=== PATIENT | female | born 1990 | race African-American/Black ===

== ENCOUNTER 2021-11-25 20:00 | Inpatient (IN) | payer OTHER ==
[2021-11-25] MEDS ORDERED: DINOPROSTONE 10 MG VAGINAL SUPPOSITORY VG ONE (21:15)
[2021-11-25 21:39] LABS: BASO % 0.4 % (0-2.0); EOS % 1.6 % (0-4.5); HEMATOCRIT 34.6 % (32.4-45.2); HEMOGLOBIN 11.8 GM/dL (10.7-15.3); LYMPH % 22.9 % (8-40); MCH 29.7 pg (25.7-33.7); MCHC 34.1 g/dl (32.0-36.0); MEAN CELL VOLUME 87.1 fl (80-96); MEAN PLT VOLUME 7.2 fl (7.5-11.1); MONO % 10.5 % (3.8-10.2); NEUT % 64.6 % (42.8-82.8); PLATELET COUNT 284 10^3/uL (134-434); RBC 3.97 M/mm3 (3.60-5.2); RDW 15.8 % (11.6-15.6); WHITE BLOOD COUNT 9.1 K/mm3 (4.0-10.0)
[2021-11-25 21:43] LABS: RETICULOCYTES 2.1 % (0.5-1.5)
[2021-11-25 21:47] LABS: INR 0.95 (0.83-1.09); PROTHROMBIN TIME (PATIENT) 10.9 SEC (9.7-13.0)
[2021-11-25 21:50] LABS: ACTIVATED PTT 24.8 SECONDS (25.2-36.5)
[2021-11-25 22:12] LABS: ALBUMIN 2.7 g/dl (3.4-5.0); BLOOD UREA NITROGEN 9.3 mg/dL (7-18)
[2021-11-25 22:14] LABS: CREATININE 0.8 mg/dL (0.55-1.3)
[2021-11-25 22:16] LABS: BILIRUBIN,TOTAL 0.3 mg/dL (0.2-1)
[2021-11-25 22:35] VITALS: BMI 41.5
[2021-11-26] MEDS: DEXTROSE 5%-LACTATED RINGERS 1,000 ML IV SCH ×2 (13:30→23:30)
[2021-11-26] MEDS ORDERED: OXYTOCIN 30 UNITS in 0.9% NS 30 UNIT/500 ML INFUS.BAG IVPB ONE (15:38)
[2021-11-26] MEDS: OXYTOCIN 30 UNITS in 0.9% NS 30 UNIT/500 ML INFUS.BAG IVPB SCH (15:45)
[2021-11-26] MEDS ORDERED: AMPICILLIN - 2 GM in SODIUM CHLORIDE 100 ML IVPB ONE (19:00)
[2021-11-26] MEDS ORDERED: AMPICILLIN SODIUM 2 GM VIAL ONE (19:27)
[2021-11-26] MEDS ORDERED: SODIUM CHLORIDE 100 ML IVPB ONE ×2 (19:27→23:15)
[2021-11-26] MEDS ORDERED: AMPICILLIN SODIUM 1 GM VIAL ONE (23:15)
[2021-11-26] MEDS: AMPICILLIN - 1 GM in SODIUM CHLORIDE 100 ML IVPB SCH (23:30)
[2021-11-27] MEDS ORDERED: PROMETHAZINE HCL 25 MG/1 ML VIAL IVPUSH ONE (01:27)
[2021-11-27] MEDS ORDERED: BUTORPHANOL TARTRATE 1 MG/ML VIAL IVPB ONE (01:27)
[2021-11-27] MEDS ORDERED: SODIUM CHLORIDE 100 ML IVPB ONE (03:29)
[2021-11-27] MEDS ORDERED: AMPICILLIN SODIUM 1 GM VIAL ONE ×3 (03:29→12:03)
[2021-11-27] MEDS: AMPICILLIN - 1 GM in SODIUM CHLORIDE 100 ML IVPB SCH ×4 (03:30→16:10)
[2021-11-27] MEDS ORDERED: BUTORPHANOL TARTRATE 2 MG/ML VIAL ONE (04:06)
[2021-11-27] MEDS ORDERED: PROMETHAZINE HCL 25 MG/1 ML VIAL ONE (04:07)
[2021-11-27] MEDS ORDERED: FENTANYL/BUPIVACAINE/NS/PF - PCEA - 50 ML DISP.SYRIN EP ONE ×2 (07:11→12:25)
[2021-11-27] MEDS ORDERED: BUPIVACAINE HCL/PF 0.25% (2.5MG/ML) 10 ML VIAL ONE (07:28)
[2021-11-27] MEDS: FENTANYL/BUPIVACAINE/NS/PF - PCEA - 50 ML DISP.SYRIN EP SCH ×2 (07:50→12:30)
[2021-11-27] MEDS ORDERED: NALOXONE HCL 0.4 MG/ML VIAL IVPUSH PRN (07:54)
[2021-11-27] MEDS ORDERED: ePHEDrine SULFATE 50 MG/1 ML AMPULE ONE (07:59)
[2021-11-27] MEDS ORDERED: PHENYLEPHRINE HCL 10 MG/1 ML SINGLE DOSE VIAL ONE ×2 (13:28→13:35)
[2021-11-27] MEDS ORDERED: ceFAZolin SODIUM 1 GM VIAL ONE (13:37)
[2021-11-27] MEDS ORDERED: OXYTOCIN 10 UNITS/ML VIAL ONE ×2 (13:38→13:39)
[2021-11-27] MEDS ORDERED: SODIUM CHLORIDE 0.9% P/F 10 ML VIAL IJ ONE ×2 (13:38→13:56)
[2021-11-27] MEDS ORDERED: morphine SULFATE/PF 1 MG/2 ML (2cc Syringe - QUVA) EP ONE (13:46)
[2021-11-27] MEDS ORDERED: ACETAMINOPHEN 325 MG TABLET (FP) PO PRN ×2 (13:46→15:39)
[2021-11-27] MEDS ORDERED: ONDANSETRON 4 MG/2 ML VIAL IVPUSH PRN (13:46)
[2021-11-27] MEDS ORDERED: SODIUM BICARBONATE 8.4% 50 MEQ/50 ML VIAL ONE (13:54)
[2021-11-27] MEDS ORDERED: OXYTOCIN 20 UNITS in 0.9% NS 20 UNIT/1,000 ML INFUS.BAG IV ONE ×2 (14:31→16:52)
[2021-11-27] MEDS ORDERED: ONDANSETRON 4 MG/2 ML VIAL ONE (14:42)
[2021-11-27] MEDS ORDERED: DEXAMETHASONE SOD PHOSPHATE 4 MG/1 ML VIAL ONE (14:42)
[2021-11-27] MEDS ORDERED: KETOROLAC TROMETHAMINE 30 MG/1 ML VIAL ONE (14:42)
[2021-11-27] MEDS ORDERED: IBUPROFEN 600 MG TABLET (FP) PO PRN (15:39)
[2021-11-27] MEDS ORDERED: METHYLERGONOVINE MALEATE 0.2 MG/1 ML AMP IM PRN (15:39)
[2021-11-27] MEDS ORDERED: IBUPROFEN 800 MG/8 ML IJ IVPB PRN (15:39)
[2021-11-27] MEDS: DEXTROSE 5%-LACTATED RINGERS 1,000 ML IV SCH (16:10)
[2021-11-27] MEDS: OXYTOCIN 30 UNITS in 0.9% NS 30 UNIT/500 ML INFUS.BAG IVPB SCH (16:13)
[2021-11-27] MEDS: OXYTOCIN 20 UNITS in 0.9% NS 20 UNIT/1,000 ML INFUS.BAG IV SCH (16:51)
[2021-11-28] MEDS: OXYTOCIN 20 UNITS in 0.9% NS 20 UNIT/1,000 ML INFUS.BAG IV SCH (00:42)
[2021-11-28 08:34] LABS: BASO % 0.3 % (0-2.0); EOS % 0.5 % (0-4.5); HEMATOCRIT 29.5 % (32.4-45.2); HEMOGLOBIN 9.9 GM/dL (10.7-15.3); MCH 29.6 pg (25.7-33.7); MCHC 33.6 g/dl (32.0-36.0); MEAN PLT VOLUME 6.6 fl (7.5-11.1); MONO % 8.9 % (3.8-10.2); NEUT % 71.3 % (42.8-82.8); PLATELET COUNT 234 10^3/uL (134-434); RBC 3.35 M/mm3 (3.60-5.2); RDW 15.8 % (11.6-15.6); WHITE BLOOD COUNT 12.6 K/mm3 (4.0-10.0)
[2021-11-28] MEDS: PRENATAL VITAMINS W/ FOLIC ACID TABLET (FP) PO SCH (09:35)
[2021-11-28] MEDS: oxyCODONE HCL 5 MG TABLET PO PRN ×2 (12:12→22:20)
[2021-11-28] MEDS: IBUPROFEN 600 MG TABLET (FP) PO PRN (14:38)
[2021-11-28] MEDS ORDERED: BISACODYL 10 MG SUPP.RECT RC PRN (15:40)
[2021-11-28] MEDS: SENNOSIDES/DOCUSATE COMBO (SENNA PLUS) TABLET (UD) PO PRN (22:19)
[2021-11-28] MEDS: SIMETHICONE 80 MG TAB.CHEW (FP) PO PRN (22:19)
[2021-11-29] MEDS: oxyCODONE HCL 5 MG TABLET PO PRN ×4 (03:15→20:25)
[2021-11-29] MEDS: IBUPROFEN 600 MG TABLET (FP) PO PRN ×3 (06:08→17:48)
[2021-11-29] MEDS: SIMETHICONE 80 MG TAB.CHEW (FP) PO PRN ×4 (08:37→20:26)
[2021-11-29] MEDS: PRENATAL VITAMINS W/ FOLIC ACID TABLET (FP) PO SCH (09:24)
[2021-11-29] MEDS: SENNOSIDES/DOCUSATE COMBO (SENNA PLUS) TABLET (UD) PO PRN (20:26)
[2021-11-30] MEDS: IBUPROFEN 600 MG TABLET (FP) PO PRN ×2 (00:02→06:41)
[2021-11-30] MEDS: SIMETHICONE 80 MG TAB.CHEW (FP) PO PRN ×2 (00:02→06:41)
[2021-11-30] MEDS: oxyCODONE HCL 5 MG TABLET PO PRN (02:24)
[2021-11-30 10:19] VITALS: BP 134/86; PULSE 92; TEMP 97.6
[2021-11-30] MEDS: PRENATAL VITAMINS W/ FOLIC ACID TABLET (FP) PO SCH (10:19)
== END 2021-11-30 12:55 | disposition home or self-care (01) | DRG 540 ==
LOC: JLDR 20:00 → J3W 11-27 17:10
PROVIDERS: ADMIT Obstetrics & Gynecology; ATTEND Obstetrics & Gynecology
PROC: 3E0P7VZ Introduction of Hormone into Female Reproductive, Via Natural or Artificial Opening (ICD-10-PCS; 2021-11-25)
PROC: 10D00Z1 Extraction of Products of Conception, Low, Open Approach (ICD-10-PCS; principal; 2021-11-26)
DX: O14.94 Unspecified pre-eclampsia, complicating childbirth (principal); O69.81X0 Labor and delivery complicated by cord around neck, without compression, not applicable or unspecified; O76 Abnormality in fetal heart rate and rhythm complicating labor and delivery; O62.0 Primary inadequate contractions; O48.0 Post-term pregnancy; Z3A.40 40 weeks gestation of pregnancy; Z37.0 Single live birth
CPT/HCPCS: 36415; 80053; 82977; 83010; 84550; 85025; 85032; 85045; 85610; 85730; 86780; 86850; 86900; 86901; 88307-TC; C9803; U0003; U0005

== ENCOUNTER 2021-12-07 17:57 | Emergency (ER) | payer OTHER ==
[2021-12-07 18:47] VITALS: BP 141/76; PULSE 72; TEMP 97.8; BMI 38.5
[2021-12-07 21:25] LABS: BASO % 0.8 % (0-2.0); EOS % 3.6 % (0-4.5); HEMATOCRIT 36.1 % (32.4-45.2); HEMOGLOBIN 12.2 GM/dL (10.7-15.3); LYMPH % 43.5 % (8-40); MCHC 33.9 g/dl (32.0-36.0); MEAN CELL VOLUME 85.4 fl (80-96); MONO % 5.9 % (3.8-10.2); NEUT % 46.2 % (42.8-82.8); PLATELET COUNT 403 10^3/uL (134-434); RBC 4.22 M/mm3 (3.60-5.2); RDW 15.4 % (11.6-15.6); WHITE BLOOD COUNT 7.2 K/mm3 (4.0-10.0)
[2021-12-07 21:29] LABS: EPI CELLS 17 /uL (0-25.1); HYALINE CASTS 2 /uL (0-3.1); URINE APPEARANCE CLEAR; URINE BACTERIA 142 /uL (0-1359); URINE BILIRUBIN NEGATIVE (NEGATIVE); URINE COLOR YELLOW; URINE GLUCOSE (UA) NEGATIVE (NEGATIVE); URINE KETONE NEGATIVE (NEGATIVE); URINE LEUK ESTERASE 1+ (NEGATIVE); URINE NITRITE NEGATIVE (NEGATIVE); URINE PROTEIN NEGATIVE (NEGATIVE); URINE RBC 82 /uL (0-23.9); URINE UROBILINOGEN 0.2 mg/dL (0.2-1.0); URINE WBC 86 /uL (0-25.8)
[2021-12-07 21:42] LABS: BLOOD UREA NITROGEN 13.2 mg/dL (7-18); CALCIUM 8.8 mg/dL (8.5-10.1)
[2021-12-07 21:43] LABS: ALBUMIN 3.2 g/dl (3.4-5.0)
[2021-12-07 21:46] LABS: CREATININE 0.8 mg/dL (0.55-1.3)
[2021-12-07 21:47] LABS: BILIRUBIN,TOTAL 0.3 mg/dL (0.2-1); TOT PROT 6.5 g/dl (6.4-8.2)
== END 2021-12-07 22:06 | disposition home or self-care (01) ==
LOC: JER 17:57
DX: R51.9 Headache, unspecified (principal); I10 Essential (primary) hypertension
CPT/HCPCS: 36415; 80053; 81003; 82570; 84156; 85025; 87086; 87186; 99283-25

== ENCOUNTER 2022-02-01 04:29 | Day surgery (SDC) | payer OTHER ==
[2022-01-31 10:01] VITALS: BMI 37.9
[2022-02-01] MEDS ORDERED: BUPIVACAINE HCL/PF 0.5% (5MG/ML) 10 ML VIAL ONE (07:54)
[2022-02-01] MEDS ORDERED: ROCURONIUM BROMIDE 50 MG/5 ML SYRINGE ONE (11:29)
[2022-02-01] MEDS ORDERED: MIDAZOLAM HCL 2 MG/2 ML SINGLE DOSE VIAL ONE (11:29)
[2022-02-01] MEDS ORDERED: PROPOFOL 20 ML ONE (11:29)
[2022-02-01] MEDS ORDERED: ceFAZolin SODIUM 1 GM VIAL IVPB ONE (12:00)
[2022-02-01] MEDS ORDERED: BUPIVACAINE HCL/PF 0.5% (5 MG/ML) 30 ML VIAL IJ ONE (12:30)
[2022-02-01] MEDS ORDERED: oxyCODONE HCL 5 MG TABLET PO PRN ×2 (13:06)
[2022-02-01] MEDS ORDERED: ONDANSETRON 4 MG/2 ML VIAL IVPUSH PRN (13:06)
[2022-02-01] MEDS ORDERED: LACTATED RINGERS SOLUTION 1,000 ML IV SCH (13:15)
[2022-02-01 17:05] VITALS: BP 137/86; PULSE 62; TEMP 97.6
== END 2022-02-01 16:35 | disposition home or self-care (01) ==
LOC: JASU-SURG 04:29
PROVIDERS: ATTEND Surgery
PROC: 0WQF0ZZ Repair Abdominal Wall, Open Approach (ICD-10-PCS; principal; 2022-02-01 10:30)
DX: K42.9 Umbilical hernia without obstruction or gangrene (principal)
CPT/HCPCS: 88302-TC; 94760